=== PATIENT | male | born 2000 | race Caucasian/White ===

== ENCOUNTER 2020-07-13 06:48 | Emergency (ER) | payer SELFPAY ==
[~2020-07-13 06:48] MED LIST: BROMFED DM COU473 ML PO; IBUPROFEN800 MG PO; ZOFRAN ODT4 MG SL; ZPAK PO
== END 2020-07-13 08:47 | disposition home or self-care (01) ==
LOC: FER 06:48
DX: J06.9 Acute upper respiratory infection, unspecified (principal); J45.909 Unspecified asthma, uncomplicated; F17.210 Nicotine dependence, cigarettes, uncomplicated; Z20.822 Contact with and (suspected) exposure to COVID-19
CPT/HCPCS: 87880; 99283; U0002